=== PATIENT | female | born 1975 | race Two or more races ===

== ENCOUNTER 2024-04-20 16:40 | Emergency (ER) | payer MEDICAID, MEDICARE ==
[~2024-04-20] VITALS: Ht 149.9 cm; Wt 51.7 kg
[~2024-04-20 16:40] MED LIST: FERR325T6 MT; IBUP-2030 MT; MULT-622 MT; PNV1TABL76 PO
[2024-04-20 16:50] VITALS: BP 145/77; O2SAT 99
[2024-04-20 16:53] VITALS: PULSE 63; RESP 18; O2SAT 100
[2024-04-20] MEDS ORDERED: ACET-3800 MT (18:11)
[2024-04-20] MEDS ORDERED: ACETAMINOPHEN 325MG TABLET PO ONE (18:15)
== END 2024-04-20 20:13 | disposition home or self-care (01) ==
LOC: ER 16:40
DX: M25.562 Pain in left knee (principal); Z98.890 Other specified postprocedural states
CPT/HCPCS: 73552; 73562; 99284